=== PATIENT | female | born 1945 | race Caucasian/White ===

== ENCOUNTER 2017-08-01 13:49 | Inpatient (IN) | payer OTHER, MEDICARE ==
[~2017-08-01] VITALS: Ht 152.4 cm; Wt 77.2 kg
[2017-08-01 14:48] LABS: HEMATOCRIT 43.4 % (36.0-46.0); MCH 29.3 PG (29.0-34.0); MCHC 33.9 G/DL (30.0-36.0); MCV 86.6 FL (83-99); MEAN PLAT.VOLUME 10.9 uM^3 (9.5-12.4); PLATELET COUNT 181 K/uL (156-360); RBC DIS.WIDTH-CV 12.6 % (11.8-14.6); RBC DIS.WIDTH-SD 39.8 % (39-53); RED BLOOD COUNT 5.01 M/uL (3.80-5.20); WHITE BLOOD COUNT 13.6 K/uL (4.1-10.2)
[2017-08-01 14:57] LABS: CHLORIDE 97 mEq/L (99-109); POTASSIUM 4.8 mEq/L (3.7-5.4); SODIUM 133 mEq/L (136-147)
[2017-08-01 14:59] LABS: GLUCOSE 450 mg/dL (70-99)
[2017-08-01 15:00] LABS: ANION GAP 18 MEQ/L (2-14)
[2017-08-01 15:03] LABS: GFR ESTIMATE (CALCULATED) 58 mL/min/; UREA NITROGEN (BUN) 22 mg/dL (9-23)
[2017-08-01 15:09] LABS: TROP-I INTERPRETATION NEGATIVE; TROPONIN-I 0.07 ng/mL (0.0-0.30)
[2017-08-01 15:30] LABS: CARBON DIOXIDE (BICARBONATE) 23.3 MEQ/L (20-31)
[2017-08-01 17:05] LABS: POINT-OF-CARE METER ID UU13113702
[2017-08-01] MEDS ORDERED: FISH OIL 1,0001 EA10 PO (18:12)
[2017-08-01] MEDS ORDERED: CINNAMON500 MG PO (18:13)
[2017-08-01] MEDS ORDERED: ALEVE220 M2 PO (18:13)
[2017-08-01 18:58] LABS: TROP-I INTERPRETATION POSITIVE
[2017-08-01 19:00] LABS: TROPONIN-I 1.42 ng/mL (0.0-0.30)
[2017-08-01 19:29] LABS: PROTHROMBIN TIME 11.1 SEC (10.2-12.9)
[2017-08-01 19:32] LABS: PTT 26.8 SEC (25-37)
[2017-08-01 20:24] LABS: HDL CHOLESTEROL 54 MG/DL (Desirable>=50); LDL CHOLESTEROL 263 mg/dL (Desirable<100); NON-HDL CHOLESTEROL 294 mg/dL (Desirable<160); TOTAL CHOLESTEROL 348 mg/dL (Desirable<200); TRIGLYCERIDES 154 MG/DL (Normal: <150)
[2017-08-01 23:45] VITALS: BP 130/80
[2017-08-02] VITALS (8 sets, daily range): BP systolic 105–146; BP diastolic 64–97
[2017-08-02 00:19] LABS: ADD MIUA? NO; BILIRUBIN NEGATIVE; BLOOD NEGATIVE; COLOR STRAW ((YELLOW)); GLUCOSE (STRIP) >=500; KETONES 80; LEUKOCYTES NEGATIVE; NITRITE NEGATIVE; PROTEIN (STRIP) NEGATIVE; SPECIFIC GRAVITY 1.032 (1.000-1.030); UROBILINOGEN 0.2 MG/DL (0.2-1.0)
[2017-08-02 00:22] LABS: POINT-OF-CARE METER ID UU13113748
[2017-08-02 01:29] LABS: INTER. NORMALIZED RATIO 1.1; PROTHROMBIN TIME 12.4 SEC (10.2-12.9)
[2017-08-02 01:45] LABS: PTT 182.4 SEC (25-37)
[2017-08-02 01:45] LABS: METH RESISTANT S AUREUS PCR NEGATIVE (NEGATIVE)
[2017-08-02 01:46] LABS: TROP-I INTERPRETATION POSITIVE
[2017-08-02 01:49] LABS: TROPONIN-I 48.21 ng/mL (0.0-0.30)
[2017-08-02 01:57] LABS: PROBE CHECK PASS; SPECIMEN PROCESSING CONTROL PASS
[2017-08-02 06:44] LABS: POINT-OF-CARE METER ID UU14208751
[2017-08-02 07:02] LABS: Estimated Average Glucose 341 mg/dL (70-123); HEMOGLOBIN A1c (GLYCOHEMOGLOB) 13.5 % HGB (Below 5.7)
[2017-08-02 11:21] LABS: HEMATOCRIT 37.5 % (36.0-46.0); MCH 29.5 PG (29.0-34.0); MCHC 32.5 G/DL (30.0-36.0); MEAN PLAT.VOLUME 10.8 uM^3 (9.5-12.4); PLATELET COUNT 211 K/uL (156-360); RBC DIS.WIDTH-SD 43.2 % (39-53); RED BLOOD COUNT 4.14 M/uL (3.80-5.20); WHITE BLOOD COUNT 16.3 K/uL (4.1-10.2)
[2017-08-02 11:22] LABS: MCV 90.6 FL (83-99)
[2017-08-02 12:12] LABS: POINT-OF-CARE METER ID UU13113803
[2017-08-02 12:48] LABS: TROP-I INTERPRETATION POSITIVE
[2017-08-02 12:54] LABS: ALKALINE PHOSPHATASE 80 IU/L (3-129); ANION GAP 11 MEQ/L (2-14); CHLORIDE 102 MEQ/L (99-109); GFR ESTIMATE (CALCULATED) > 59 mL/min/; GLUCOSE 289 mg/dL (70-99); POTASSIUM 4.5 MEQ/L (3.7-5.4); SAMPLE HEMOLYSIS CHECK 0; SAMPLE ICTERIC CHECK 0; SAMPLE LIPEMIA CHECK 0; SODIUM 135 MEQ/L (136-147); TOTAL BILIRUBIN 0.4 MG/DL (0.0-1.0); UREA NITROGEN (BUN) 18 mg/dL (9-23)
[2017-08-02 17:30] LABS: TROP-I INTERPRETATION POSITIVE; TROPONIN-I 49.11 ng/mL (0.0-0.30)
[2017-08-02 17:40] LABS: POINT-OF-CARE METER ID UU13113803
[2017-08-03] VITALS (7 sets, daily range): BP systolic 119–133; BP diastolic 57–80
[2017-08-03 00:15] LABS: POINT-OF-CARE METER ID UU13113748
[2017-08-03 05:49] LABS: HEMATOCRIT 39.1 % (36.0-46.0); MCH 28.7 PG (29.0-34.0); MCHC 32.5 G/DL (30.0-36.0); MCV 88.5 FL (83-99); MEAN PLAT.VOLUME 10.8 uM^3 (9.5-12.4); PLATELET COUNT 197 K/uL (156-360); RBC DIS.WIDTH-CV 13.2 % (11.8-14.6); RBC DIS.WIDTH-SD 42.9 % (39-53); RED BLOOD COUNT 4.42 M/uL (3.80-5.20); WHITE BLOOD COUNT 17.4 K/uL (4.1-10.2)
[2017-08-03 06:13] LABS: ANION GAP 13 MEQ/L (2-14); CHLORIDE 103 MEQ/L (99-109); GFR ESTIMATE (CALCULATED) > 59 mL/min/; GLUCOSE 232 mg/dL (70-99); SAMPLE HEMOLYSIS CHECK 0; SAMPLE ICTERIC CHECK 0; SAMPLE LIPEMIA CHECK 0; SODIUM 137 MEQ/L (136-147); UREA NITROGEN (BUN) 19 mg/dL (9-23)
[2017-08-03 09:57] LABS: POINT-OF-CARE METER ID UU13113731
[2017-08-03 11:38] LABS: POINT-OF-CARE METER ID UU13113731
[2017-08-03 15:19] LABS: POINT-OF-CARE METER ID UU13113778
[2017-08-03 18:15] LABS: POINT-OF-CARE METER ID UU14208751
[2017-08-04] VITALS (7 sets, daily range): BP systolic 109–148; BP diastolic 53–73
[2017-08-04 05:17] LABS: HEMATOCRIT 37.9 % (36.0-46.0); MCH 29.7 PG (29.0-34.0); MCHC 33.8 G/DL (30.0-36.0); MCV 87.9 FL (83-99); MEAN PLAT.VOLUME 10.9 uM^3 (9.5-12.4); PLATELET COUNT 183 K/uL (156-360); RBC DIS.WIDTH-CV 12.9 % (11.8-14.6); RBC DIS.WIDTH-SD 41.7 % (39-53); RED BLOOD COUNT 4.31 M/uL (3.80-5.20); WHITE BLOOD COUNT 13.7 K/uL (4.1-10.2)
[2017-08-04 05:38] LABS: ANION GAP 11 MEQ/L (2-14); CHLORIDE 103 MEQ/L (99-109); GFR ESTIMATE (CALCULATED) > 59 mL/min/; GLUCOSE 250 mg/dL (70-99); POTASSIUM 3.5 MEQ/L (3.7-5.4); SAMPLE HEMOLYSIS CHECK 0; SAMPLE ICTERIC CHECK 0; SAMPLE LIPEMIA CHECK 0; SODIUM 138 MEQ/L (136-147); UREA NITROGEN (BUN) 18 mg/dL (9-23)
[2017-08-04] MEDS ORDERED: LOPRESSOR100 M1 PO (10:19)
[2017-08-04] MEDS ORDERED: ASPIR-LOW81 MG PO (10:19)
[2017-08-04] MEDS ORDERED: BRILINTA90 MG PO (10:19)
[2017-08-04] MEDS ORDERED: LISINOPRIL2.5 MG PO (10:19)
[2017-08-04] MEDS ORDERED: ATORVASTATIN CA40 MG PO (10:19)
[2017-08-04 11:31] LABS: POINT-OF-CARE METER ID UU14174216
[2017-08-04 16:27] LABS: POINT-OF-CARE METER ID UU14174216
[2017-08-05 03:33] VITALS: BP 118/58
[2017-08-05 06:24] LABS: ANION GAP 10 MEQ/L (2-14); CHLORIDE 107 MEQ/L (99-109); GFR ESTIMATE (CALCULATED) > 59 mL/min/; POTASSIUM 3.7 MEQ/L (3.7-5.4); SAMPLE HEMOLYSIS CHECK 0; SAMPLE ICTERIC CHECK 0; SAMPLE LIPEMIA CHECK 0; SODIUM 142 MEQ/L (136-147); UREA NITROGEN (BUN) 19 mg/dL (9-23)
[2017-08-05 06:25] LABS: GLUCOSE 111 mg/dL (70-99)
[2017-08-05 07:14] VITALS: BP 112/64
[2017-08-05] MEDS ORDERED: NOVOLOG 10100 UNITS/ SC (09:16)
[2017-08-05] MEDS ORDERED: FUROSEMIDE20 MG PO (09:16)
[2017-08-05] MEDS ORDERED: EASY COMFORT I1 EAC4 MC (09:16)
[2017-08-05] MEDS ORDERED: LEVEMIR100 UNIT/2 SC (09:16)
[2017-08-05] MEDS ORDERED: GLUCOMETER MC ×2 (09:31→12:38)
[2017-08-05 11:28] LABS: POINT-OF-CARE METER ID UU13113698
[2017-08-05 11:33] VITALS: BP 102/61
[2017-08-05] MEDS ORDERED: SIDEKICK BLOOD1 EACH MC (12:38)
[2017-08-05] MEDS ORDERED: BLOOD LANCETS1 EACH MC (12:38)
== END 2017-08-05 14:51 | disposition home or self-care (01) | DRG 246 ==
LOC: EME 13:49 → EDOF 18:49 → 4WEST 18:49 → 4EAST 18:49 → ENRESERV 18:53 → 4WEST 23:44 → ENRESERV 08-03 19:41 → 4EAST 08-03 21:06 → ENPENDDIS 08-05 → 4EAST 08-05 14:51
PROVIDERS: Hospitalist; Internal Medicine; Internal Medicine Cardiovascular Disease; Physician Assistant
DX: I21.4 Non-ST elevation (NSTEMI) myocardial infarction (principal); I50.21 Acute systolic (congestive) heart failure; I11.0 Hypertensive heart disease with heart failure; E66.9 Obesity, unspecified; E78.5 Hyperlipidemia, unspecified; E11.65 Type 2 diabetes mellitus with hyperglycemia; Z91.19 Patient's noncompliance with other medical treatment and regimen; Z79.4 Long term (current) use of insulin; Z68.34 Body mass index [BMI] 34.0-34.9, adult; I25.10 Atherosclerotic heart disease of native coronary artery without angina pectoris
CPT/HCPCS: 71020; 71275; 80048; 80053; 80061; 81003; 82010; 82803; 82948; 83036; 84484; 85027; 85347; 85610; 85730; 87641; 93005; 93306; 94799; 99281; 99285; C1725; C1769; C1874; C1887; J0461; J1644; J1815; J1940; J2250; J2270; J2405; J3010; J3246; J7030; S0028